=== PATIENT | female | born 1955 | race Caucasian/White ===

== ENCOUNTER 2017-07-01 09:53 | Emergency (ER) | payer OTHER ==
--- NOTE | 2017-07-01 10:40 | EDM.PDOC ---
[id number] Complaint: General Stated Complaint: LT RIB PAIN Time Seen by Provider: 07/01/17 10:38 Source of Information: Reports: Patient History Limitations: Reports: No Limitations - History of Present Illness INITIAL COMMENTS - FREE TEXT/NARRATIVE: Patient is a 61-year-old female presents ED complaining of left-sided rib pain. Patient states her this week she was opening up a window that was stuck. Patient had to strain to do this with a pop sensation fell to the left lower ribs. States throughout the course of the week she was babysitting it and taking ibuprofen and hydrocodone. Patient takes hydrocodone for chronic back pain. She states yesterday while carrying to heavy basic daily later the pain worsened. She has not been able to lay flat at night to sleep. States she has been sleeping intermittently in a recliner. Pain is quite severe with taking a deep breath, palpation, and of course lifting heavy items. She is not short of breath. She denies a cough, fever/chills, nausea/vomiting, or abdominal pain. She states it feels more like a bruise. She is concerned she may have fractured a rib. - Related Data Allergies Allergy/AdvReac Type Severity Reaction Status Date / Time erythromycin base Allergy Rash Verified 07/01/17 10:13 ees Allergy Rash Uncoded 07/01/17 10:13 Home Meds: Home Meds Ibuprofen 600 mg PO Q4H 09/29/14 [History] Valsartan [Diovan] 320 mg PO DAILY 09/29/14 [History] Celecoxib [CeleBREX] 200 mg PO BID 12/10/16 [History] DULoxetine [Cymbalta] 20 mg PO DAILY 12/10/16 [History] Fexofenadine [Ashley] 180 mg PO DAILY PRN 12/10/16 [History] buPROPion [Wellbutrin XL] 150 mg PO DAILY 12/10/16 [History] Hydrocodone/Acetaminophen [Hydrocodon-Acetaminophn 10-325] 0.5 tab PO Q6H PRN # 15 tablet 07/01/17 [Rx] Pantoprazole Sodium 40 mg PO DAILY 07/01/17 [History] ED ROS GENERAL - Review of Systems Review Of Systems: ROS reveals no pertinent complaints other than HPI. ED EXAM, GENERAL - Physical Exam Exam: See Below Exam Limited By: No Limitations General Appearance: Alert, WD/WN, No Apparent Distress Ears: Hearing Grossly Normal Nose: Normal Inspection Throat/Mouth: Normal Voice, No Airway Compromise Neck: Normal Inspection, Supple Respiratory/Chest: No Respiratory Distress, Lungs Clear, Normal Breath Sounds, No Accessory Muscle Use, Other (Tenderness along the mammary fold of the left breast mid clavicular. no swelling, bruising, redness, or bony abnormalities. Pain with palpation and taking deep breath. ) Cardiovascular: Normal Peripheral Pulses, Regular Rate, Rhythm, No Murmur Peripheral Pulses: 2+: Radial (L) GI/Abdominal: Normal Bowel Sounds, Soft, Non-Tender, No Organomegaly, No Distention Extremities: Normal Inspection Neurological: Alert, Oriented, CN II-XII Intact, Normal Cognition, No Motor/ Sensory Deficits Psychiatric: Normal Affect, Normal Mood Skin Exam: Warm, Dry, Intact, Normal Color Course - Vital Signs Last Recorded V/S: Last Vital Signs Temp 37.2 C 07/01/17 10:13 Pulse 75 07/01/17 12:00 Resp 16 07/01/17 12:00 BP 141/86 H 07/01/17 12:00 Pulse Ox 96 07/01/17 12:00 - Re-Assessments/Exams Free Text/Narrative Re-Assessment/Exam: X-ray of the chest and left rib series was obtained. 07/01/17 11:24 X-ray of the chest and left ribs did not reveal any acute abnormalities. Patient has a intercostal muscle strain. Discharged home with instructions as documented. Departure - Departure Time of Disposition: 11:25 Disposition: Home, Self-Care 01 Condition: Good Clinical Impression: Anterior chest wall pain - Discharge Information Prescriptions: Hydrocodone/Acetaminophen [Hydrocodon-Acetaminophn 10-325] 0.5 tab PO Q6H PRN # 15 tablet PRN Reason: Pain (Severe 7-10) Instructions: Chest Wall Pain Referrals: Myrtle Matthew [employer] G[employer]ILDER [Primary Care Provider] - Forms: ED Department Discharge Additional Instructions: X-ray of the chest did not reveal any acute bony abnormalities. Etiology current complaint muscle related and will take some time to heal. For pain take ibuprofen 600 mg every 6 hours and Tylenol 650 mg every 6 hours in alternating fashion. Utilize warm or cold compresses to affected area as needed. Refrain from any activities that cause worsening pain. Can also utilize over-the- counter topical pain ointment such as Biofreeze in addition to all the above therapies. Take the ibuprofen with food and water. Do not exceed the 600 mg every 6 hours. For severe pain take [place] half tab every 4-6 hours as needed. Can take a full tab at night to help with sleeping. Utilize [id number] stool softener while taking the [place]. No driving while taking the [place]. See her primary care provider in one week for reevaluation. Return to ED for any new or worsening symptoms. 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 Neurological History: Reports: None Psychiatric History: Reports: None Endocrine/Metabolic History: Reports: None Hematologic History: Reports: None Immunologic History: Reports: None Oncologic (Cancer) History: Reports: None Dermatologic History: Reports: Cellulitis - Infectious Disease History Infectious Disease History: Reports: None - Past Surgical History GI Surgical History: Reports: Appendectomy, Hernia, Abdominal, Hernia Repair/ Other Female Surgical History: Reports: Hysterectomy, Salpingo-Oophorectomy Musculoskeletal Surgical History: Reports: Arthroscopic Knee Social & Family History - Family History Family Medical History: Noncontributory : Reports: Renal Calculus - Tobacco Use Smoking Status *Q: Never Smoker Second Hand Smoke Exposure: No - Caffeine Use Caffeine Use: Reports: None - Alcohol Use Days Per Week of Alcohol Use: 0 - Recreational Drug Use Recreational Drug Use: No - Living Situation & Occupation Living situation: Reports: Occupation: Employed
[2017-07-01 11:39] VITALS: BP 141/86
--- NOTE | 2017-07-01 17:29 | CR ---
Chest and left ribs: Frontal view of the chest was obtained as well as 3 views of the left ribs. Comparison: No previous chest or rib imaging. Slight atelectasis is seen within the left mid lung. Lungs otherwise are clear. No pneumothorax is seen. Heart size is within normal limits. Mild tortuosity of the thoracic aorta is seen. No discrete rib fracture or other left-sided rib abnormality is seen. Impression: 1. Slight atelectasis. 2. No discrete left-sided rib abnormality is identified. Nondisplaced fracture could easily be missed. 3. Nothing acute is appreciated. Diagnostic code #2
== END 2017-07-01 12:01 | disposition home or self-care (01) ==
LOC: JD.ED 09:53
DX: S29.011A Strain of muscle and tendon of front wall of thorax, initial encounter (principal); I10 Essential (primary) hypertension; Z88.1 Allergy status to other antibiotic agents; Z79.899 Other long term (current) drug therapy; Z90.49 Acquired absence of other specified parts of digestive tract; Z90.710 Acquired absence of both cervix and uterus; X58.XXXA Exposure to other specified factors, initial encounter
CPT/HCPCS: 71101-26-LT; 71101-LT; 99283

== ENCOUNTER 2018-02-11 10:22 | Emergency (ER) | payer OTHER ==
[2018-02-11 10:33] VITALS: BP 188/107
--- NOTE | 2018-02-11 11:28 | EDM.PDOC ---
ED HPI GENERAL MEDICAL PROBLEM - General Chief Complaint: Back Pain or Injury Stated Complaint: LT WRIST /HEAD/BACK Time Seen by Provider: 02/11/18 11:10 Source of Information: Reports: Patient History Limitations: Reports: No Limitations - History of Present Illness INITIAL COMMENTS - FREE TEXT/NARRATIVE: Patient is a 62-year-old female presents ED complaining of left wrist pain, right sided low back pain, right and left-sided neck pain, and posterior head discomfort. Patient fell approximately 8:00 this morning while walking across a parking lot. Patient slipped on the snow. Fell on her right side hitting the back of her head. There was no loss of consciousness. Patient was able to get up on her own accord with no difficulties. Since then has decrease in discomfort to the back of her head but the pain to her right lateral aspect of her low back has persisted unchanged. In addition she'smild swelling to the left wrist/hand. She believes she may have hit her hand during the fall. Minimal change in range of motion noted. She is under chronic pain management for osteoarthritis. She is on their cuff, Cymbalta, and hydrocodone. She also has a mild headache. She is concerned she may have fractured bone or wrist. Otherwise she has a history of osteoarthritis and believes most discomfort is associated with that. She is on no blood thinners. She did ambulate into the ED on her own accord with no difficulties. She has a history of back surgery cystectomy to the lumbar spine approximately 9 weeks ago. She has no midline cervical, thoracic, or lumbar pain. No pain radiating down her legs. No saddle anesthesia or, C or stool. She has full range of motion of her neck. No numbness or team to extremities.. No vision changes. No focal neurological deficits. Mildly nauseated but no emesis. She has no other complaints. Treatments MANAGER LVN: Reports: Other (see below) Other Treatments MANAGER LVN: Ibuprofen, Prednisone Right Lower Back Pain Score (Numeric/FACES): 7 - Related Data Allergies Allergy/AdvReac Type Severity Reaction Status Date / Time erythromycin base Allergy Rash Verified 07/01/17 10:13 ees Allergy Rash Uncoded 07/01/17 10:13 Home Meds: Home Meds Ibuprofen 600 mg PO Q4H 09/29/14 [History] Valsartan [Diovan] 320 mg PO DAILY 09/29/14 [History] Celecoxib [CeleBREX] 200 mg PO BID 12/10/16 [History] DULoxetine [Cymbalta] 20 mg PO DAILY 12/10/16 [History] Fexofenadine [Ashley] 180 mg PO DAILY PRN 12/10/16 [History] Hydrocodone/Acetaminophen [Hydrocodon-Acetaminophn 10-325] 0.5 tab PO Q6H PRN # 15 tablet 07/01/17 [Rx] Pantoprazole Sodium 40 mg PO DAILY 07/01/17 [History] Pregabalin [Lyrica] 60 mg PO DAILY 02/11/18 [History] Past Medical History HEENT History: Reports: Allergic Rhinitis, Impaired Vision Other HEENT History: Wears glasses Cardiovascular History: Reports: Hypertension Respiratory History: Reports: None Gastrointestinal History: Reports: Other (See Below) Other Gastrointestinal History: Stomach ulcer Genitourinary History: Reports: Renal Calculus 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 Neurological History: Reports: None Psychiatric History: Reports: None Endocrine/Metabolic History: Reports: None Hematologic History: Reports: None Immunologic History: Reports: None Oncologic (Cancer) History: Reports: None Dermatologic History: Reports: Cellulitis - Infectious Disease History Infectious Disease History: Reports: None - Past Surgical History GI Surgical History: Reports: Appendectomy, Hernia, Abdominal, Hernia Repair/ Other Female Surgical History: Reports: Hysterectomy, Salpingo-Oophorectomy Musculoskeletal Surgical History: Reports: Arthroscopic Knee Social & Family History - Family History Family Medical History: Noncontributory : Reports: Renal Calculus - Tobacco Use Smoking Status *Q: Never Smoker Second Hand Smoke Exposure: No - Caffeine Use Caffeine Use: Reports: None - Alcohol Use Days Per Week of Alcohol Use: 0 - Recreational Drug Use Recreational Drug Use: No - Living Situation & Occupation Living situation: Reports: Occupation: Employed ED ROS GENERAL - Review of Systems Review Of Systems: ROS reveals no pertinent complaints other than HPI. ED EXAM, GENERAL - Physical Exam Exam: See Below Exam Limited By: No Limitations General Appearance: Alert, WD/WN, No Apparent Distress Eye Exam: Bilateral Eye: EOMI, PERRL Ears: Hearing Grossly Normal Nose: Normal Inspection Throat/Mouth: Normal Inspection, Normal Oropharynx, Normal Voice, No Airway Compromise Head: Other (Small hematoma to the posterior aspect of her head. With no bony abnormalities noted. No wounds present.) Neck: Normal Inspection, Supple, Non-Tender (Midline), Full Range of Motion, Tender Lateral (Bilaterally) Respiratory/Chest: No Respiratory Distress, Lungs Clear, Normal Breath Sounds, No Accessory Muscle Use, Chest Non-Tender Cardiovascular: Normal Peripheral Pulses, Regular Rate, Rhythm Peripheral Pulses: 4+: Radial (L) GI/Abdominal: Normal Bowel Sounds, Soft, Non-Tender, No Organomegaly, No Distention Back Exam: Normal Inspection, Other (Minimal discomfort noted along the right lateral low back. No bruising or bruising noted.). No: Paraspinal Tenderness, Vertebral Tenderness Extremities: Other (Mild swelling noted to the base of the left thumb. Pain along the scaphoid process. Minimal change in range of motion noted of the wrist. No complaints with palpation of the fingers, many parts of the hand, forearm, elbow, upper arm, shoulder, clavicle.) Neurological: Alert, Oriented, CN II-XII Intact, Normal Cognition, Normal Gait, No Motor/Sensory Deficits Psychiatric: Normal Affect, Normal Mood Skin Exam: Warm, Dry, Intact, Normal Color, No Rash Course - Vital Signs Last Recorded V/S: Last Vital Signs Temp 97.2 F 02/11/18 10:29 Pulse 73 02/11/18 10:29 Resp 18 02/11/18 10:29 BP 188/107 H 02/11/18 10:29 Pulse Ox 99 02/11/18 10:29 - Re-Assessments/Exams Free Text/Narrative Re-Assessment/Exam: Will order x-ray of the left wrist. No other studies required at this time. X-ray of the left wrist final interpretation: no acute bony abnormalities noted. Thumb Spica splint applied since patient has pain along the scaphoid process. Applied with no complications. Discharge instructions as documented. Departure - Departure Time of Disposition: 12:15 Disposition: Home, Self-Care 01 Condition: Good Clinical Impression: Left wrist sprain Qualifiers: Encounter type: initial encounter Qualified Code(s): S63.502A - Unspecified sprain of left wrist, initial encounter Contusion of wrist, left Qualifiers: Encounter type: initial encounter Qualified Code(s): S60.212A - Contusion of left wrist, initial encounter - Discharge Information Instructions: Wrist Sprain, Adult Referrals: Myrtle Matthew P[employer] UP MAN [Primary Care Provider] - Forms: ED Department Discharge Additional Instructions: X-ray of the left wrist did not reveal any acute bony abnormalities. Due to pain along the anatomical snuffbox concerning for potential scaphoid fracture thus requiring application of thumb spica splint. X-ray of the left wrist she be undertaken in 10 days. Follow-up with Dr. Hernandez Orthopedic Surgeon for revaluation and placement of fiberglass cast if required. Leave splint in place. Elevate when able to reduce any swelling and pain. Continue taking all your home medications as prescribed. Apply ice to affected area 4 times a day, 30 minutes in duration, do not apply ice directly on the skin. Return to the ED if you develop any new or worsening symptoms.
--- NOTE | 2018-02-11 12:12 | CR ---
Left wrist: Four views of the left wrist were obtained. Comparison: No previous study. Joint space narrowing is noted within the CMC joint of the thumb. Other joint spaces are preserved. No acute fracture or other abnormality is seen. Impression: 1. Degenerative change within the CMC joint of the thumb. 2. Left wrist exam is otherwise unremarkable. Diagnostic code #2
== END 2018-02-11 12:23 | disposition home or self-care (01) ==
LOC: JD.ED 10:22
DX: S63.502A Unspecified sprain of left wrist, initial encounter (principal); S60.212A Contusion of left wrist, initial encounter; I10 Essential (primary) hypertension; Z88.1 Allergy status to other antibiotic agents; Z91.030 Bee allergy status; Z79.899 Other long term (current) drug therapy; W01.10XA Fall on same level from slipping, tripping and stumbling with subsequent striking against unspecified object, initial encounter
CPT/HCPCS: 29125; 73110-26-LT; 73110-LT; 99283; 99283-25

== ENCOUNTER 2018-06-04 11:40 | Emergency (ER) | payer OTHER ==
[2018-06-04 11:57] VITALS: BP 198/116
[2018-06-04] MEDS ORDERED: Cyclobenzaprine 10 MG Tab PO ONE (12:43)
--- NOTE | 2018-06-04 12:51 | EDM.PDOC ---
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 She felt a pop in her mid chest/ sternum and had instant pain across her chest and "through my whole body" which lasted a minute or so. She continued to have pain to her mid chest with any movements since that time. 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 She then went to her other job at the [employer] store last evening. She was not able to sleep much last night due to the pain in her chest, unable to lay flat due to increasing pain. This morning pain is also present and worse than yesterday, she is unable to work today due to the pain. Pain is now present and worsens with deep breaths today. She took ibuprofen with minimal improvements. Denies palpitations, headache, nausea, neck or arm pain. Onset: Sudden Duration: Day(s): (1) Location: Reports: Chest Quality: Reports: Ache, Sharp (wtih movements), Throbbing Improves with: Reports: Rest Worsens with: Reports: Movement Context: Reports: Lifting Associated Symptoms: Reports: Chest Pain. 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 Middle Chest Pain Score (Numeric/FACES): 10 - Related Data Allergies Allergy/AdvReac Type Severity Reaction Status Date / Time erythromycin base Allergy Rash Verified 07/01/17 10:13 donavan Allergy Sneezing Verified 06/04/18 12:00 ees Allergy Rash Uncoded 07/01/17 10:13 Home Meds: Home Meds Ibuprofen 600 mg PO Q6H 09/29/14 [History] Valsartan [Diovan] 320 mg PO DAILY 09/29/14 [History] Celecoxib [CeleBREX] 200 mg PO BID 12/10/16 [History] DULoxetine [Cymbalta] 90 mg PO DAILY 12/10/16 [History] Fexofenadine [Ashley] 180 mg PO DAILY PRN 12/10/16 [History] Pantoprazole Sodium 40 mg PO DAILY 07/01/17 [History] Hydrocodone/Acetaminophen [Hydrocodon-Acetaminophn 10-325] 1 tab PO Q4H PRN 09/12 [History] Past Medical History HEENT History: Reports: Allergic Rhinitis, Impaired Vision Other HEENT History: Wears glasses Cardiovascular History: Reports: Hypertension Respiratory History: Reports: None Gastrointestinal History: Reports: Other (See Below) Other Gastrointestinal History: Stomach ulcer Genitourinary History: Reports: Renal Calculus 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 Neurological History: Reports: None Psychiatric History: Reports: None Endocrine/Metabolic History: Reports: None Hematologic History: Reports: None Immunologic History: Reports: None Oncologic (Cancer) History: Reports: None Dermatologic History: Reports: Cellulitis - Infectious Disease History Infectious Disease History: Reports: None - Past Surgical History GI Surgical History: Reports: Appendectomy, Hernia, Abdominal, Hernia Repair/ Other Female Surgical History: Reports: Hysterectomy, Salpingo-Oophorectomy Musculoskeletal Surgical History: Reports: Arthroscopic Knee Social & Family History - Family History Family Medical History: Noncontributory : Reports: Renal Calculus - Caffeine Use Caffeine Use: Reports: None - Living Situation & Occupation Living situation: Reports: Occupation: Employed ED ROS GENERAL - Review of Systems Review Of Systems: See Below Constitutional: Reports: No Symptoms HEENT: Reports: No Symptoms Respiratory: Reports: No Symptoms. Denies: Shortness of Breath, Cough Cardiovascular: Denies: Dyspnea on Exertion, Palpitations, Syncope GI/Abdominal: Reports: No Symptoms : Reports: No Symptoms Musculoskeletal: Reports: Other (pain to mid chest with any amount of movement, deep breaths, coughing, sneezing) Skin: Reports: No Symptoms Neurological: Reports: No Symptoms ED EXAM, GENERAL - Physical Exam Exam: See Below Exam Limited By: No Limitations General Appearance: Alert, WD/WN, No Apparent Distress Eye Exam: Bilateral Eye: EOMI, PERRL Ears: Normal External Exam, Hearing Grossly Normal Nose: Normal Inspection Throat/Mouth: Normal Inspection, Normal Teeth, Normal Voice, No Airway Compromise Head: Atraumatic, Normocephalic Neck: Normal Inspection Respiratory/Chest: No Respiratory Distress, Lungs Clear, Normal Breath Sounds, Other (palpation of anterior chest wall reveals ) Cardiovascular: Regular Rate, Rhythm, No Edema, Other (trace edema to ankles, worse to left- has hx of lt ankle fx and has swelling intermittent) Peripheral Pulses: 2+: Dorsalis Pedis (L), Dorsalis Pedis (R) GI/Abdominal: Normal Bowel Sounds, Soft, Non-Tender (Female) Exam: Deferred Rectal (Female) Exam: Deferred Back Exam: Normal Inspection Extremities: Normal Inspection, Non-Tender Neurological: Alert, Oriented, CN II-XII Intact Psychiatric: Normal Affect, Normal Mood Skin Exam: Warm, Dry, Intact Course - Vital Signs Last Recorded V/S: Last Vital Signs Temp 99.5 F 06/04/18 11:54 Pulse 85 06/04/18 11:54 Resp 24 H 06/04/18 11:54 BP 198/116 H 06/04/18 11:54 Pulse Ox 97 06/04/18 11:54 - Orders/Labs/Meds Orders: Active Orders 24 hr Category Date Time Status Chest 2V [CR] Stat Exams 06/04/18 12:43 Taken Meds: Medications Discontinued Medications Generic Name Dose Route Start Last Admin Trade Name Dylan PRN Reason Stop Dose Admin Cyclobenzaprine HCl 10 mg 06/04/18 12:43 06/04/18 12:49 Flexeril PO 06/04/18 12:44 10 mg ONETIME ONE Administration Departure - Departure Time of Disposition: 14:05 Disposition: Home, Self-Care 01 Condition: Good Clinical Impression: Costochondritis, acute - Discharge Information *PRESCRIPTION DRUG MONITORING PROGRAM REVIEWED*: No *COPY OF PRESCRIPTION DRUG MONITORING REPORT IN PATIENT KANWAL: No Instructions: Costochondritis, [id number], Nonspecific Chest Pain, Easy-to- Read Referrals: PCP,None [Ordering Only Provider] - Forms: ED Department Discharge Additional Instructions: Your chest xray is normal today. Recommend no lifting, pushing, pulling, carrying anything >10lbs for the next week, minimal repeatitive activities with upper extremities for the next 1-2 weeks, minimal overhead activities/work for the next 1-2 weeks. Ibuprofen 600-800mg 3 times daily with food. Flexeril - muscle relaxant can be taken 3 times daily for spasms/pain. Can use your hydrocodone prescription as needed and directed by your primary care provider. Please follow up with PCP, IVET Alarcon in the next few days. Follow up for your elevated b/p; check b/p once daily and record. - My Orders Last 24 Hours: My Active Orders 06/04/18 12:43 Chest 2V [CR] Stat - Assessment/Plan Last 24 Hours: My Active Orders 06/04/18 12:43 Chest 2V [CR] Stat
--- NOTE | 2018-06-05 09:26 | CR ---
Chest: Two views of the chest were obtained. Comparison: Prior chest x-ray of 07/01/17. Heart size is normal. Tortuous thoracic aorta is seen. Lungs are clear with no acute parenchymal change. Bony structures are unremarkable. Impression: 1. Nothing acute is seen on two-view chest x-ray. Diagnostic code #2
== END 2018-06-04 14:35 | disposition home or self-care (01) ==
LOC: JD.ED 11:40
DX: M94.0 Chondrocostal junction syndrome [Tietze] (principal); I10 Essential (primary) hypertension; Z88.1 Allergy status to other antibiotic agents; Z79.899 Other long term (current) drug therapy
CPT/HCPCS: 71046; 99284; A9270

== ENCOUNTER 2018-08-31 18:15 | Emergency (ER) | payer MEDICARE, OTHER ==
--- NOTE | 2018-08-31 19:13 | EDM.PDOC ---
ED HPI GENERAL MEDICAL PROBLEM - General Chief Complaint: General Stated Complaint: HBP AND DIZZY Time Seen by Provider: 08/31/18 19:13 - History of Present Illness INITIAL COMMENTS - FREE TEXT/NARRATIVE: 63-year-old female presents emergency room to have a blood pressure check. She generally does not feel well she had the Pneumovax and flu shot yesterday yesterday she noticed her blood pressure as high as 180. Today the emergency room her blood pressure is well within the normal range she still feels a little achy apparently the patient has residual kidney stones within the kidneys have not caused her active problems recently but she is scheduled to see urology for more definitive plan for this. Recently she had her blood pressure medication changed she is currently taking losartan and lisinopril and wonders if this could be making her feel bad. Discussed potential interactions with these 2 medications the need for very close lab monitoring and this is probably best done under specialty supervision Headache Pain Score (Numeric/FACES): 6 - Related Data Allergies Allergy/AdvReac Type Severity Reaction Status Date / Time erythromycin base Allergy Rash Verified 08/31/18 18:31 donavan Allergy Sneezing Verified 08/31/18 18:31 ees Allergy Rash Uncoded 08/31/18 18:31 Home Meds: Home Meds Ibuprofen 600 mg PO Q6H 09/29/14 [History] Valsartan [Diovan] 320 mg PO DAILY 09/29/14 [History] Celecoxib [CeleBREX] 200 mg PO BID 12/10/16 [History] DULoxetine [Cymbalta] 90 mg PO DAILY 12/10/16 [History] Fexofenadine [Ashley] 180 mg PO DAILY PRN 12/10/16 [History] Pantoprazole Sodium 40 mg PO DAILY 07/01/17 [History] Hydrocodone/Acetaminophen [Hydrocodon-Acetaminophn 10-325] 1 tab PO Q4H PRN 09/12 [History] Capsaicin [Arthritis Pain Relief] 1 applic TOP QID 08/31/18 [History] Clobetasol [Temovate 0.05% Oint] 1 applic TOP DAILY 08/31/18 [History] Diclofenac Sodium [Pennsaid] 1 applic TOP QID 08/31/18 [History] Fluticasone Furoate [Arnuity Ellipta] 1 inh INH ASDIRECTED 08/31/18 [History] Lisinopril [Prinivil] 20 mg PO DAILY 08/31/18 [History] Pregabalin [Lyrica] 50 mg PO TID 08/31/18 [History] Tamsulosin [Flomax] 0.4 mg PO DAILY 08/31/18 [History] Past Medical History HEENT History: Reports: Allergic Rhinitis, Impaired Vision Other HEENT History: Wears glasses Cardiovascular History: Reports: Hypertension Respiratory History: Reports: None Gastrointestinal History: Reports: Other (See Below) Other Gastrointestinal History: Stomach ulcer Genitourinary History: Reports: Renal Calculus BAKER TEST History: Reports: Other BAKER TEST History: 5 para 3 Musculoskeletal History: Reports: Fracture, Osteoporosis, Other (See Below) Other Musculoskeletal History: Herniated disc in back, torn tendons in foot. Neurological History: Reports: None Psychiatric History: Reports: None Endocrine/Metabolic History: Reports: None Hematologic History: Reports: None Immunologic History: Reports: None Oncologic (Cancer) History: Reports: None Dermatologic History: Reports: Cellulitis - Infectious Disease History Infectious Disease History: Reports: None - Past Surgical History GI Surgical History: Reports: Appendectomy, Hernia, Abdominal, Hernia Repair/ Other Female Surgical History: Reports: Hysterectomy, Salpingo-Oophorectomy Musculoskeletal Surgical History: Reports: Arthroscopic Knee Social & Family History - Family History Family Medical History: Noncontributory : Reports: Renal Calculus - Tobacco Use Smoking Status *Q: Never Smoker - Caffeine Use Caffeine Use: Reports: Energy Drinks Other Caffeine Use: rarely - Recreational Drug Use Recreational Drug Use: No - Living Situation & Occupation Living situation: Reports: Occupation: Employed [employer] [facility] - Review of Systems Review Of Systems: See Below Constitutional: Reports: No Symptoms. Denies: Fever, Chills HEENT: Denies: No Symptoms Respiratory: Denies: No Symptoms, Shortness of Breath Cardiovascular: Denies: No Symptoms Endocrine: Denies: No Symptoms GI/Abdominal: Reports: No Symptoms. Denies: Abdominal Pain, Anorexia, Diarrhea , Decreased Appetite, Nausea, Vomiting : Reports: Other (She has some occasional discomfort that she start is related to her kidney stones) Musculoskeletal: Denies: Shoulder Pain Skin: Denies: Dryness, Bruising, Pruritis Neurological: Denies: No Symptoms, Confusion, Dizziness Psychiatric: Reports: No Symptoms Hematologic/Lymphatic: Reports: No Symptoms ED EXAM, GENERAL - Physical Exam Exam: See Below Exam Limited By: No Limitations General Appearance: Alert, No Apparent Distress Eye Exam: Bilateral Eye: Normal Inspection Head: Atraumatic, Normocephalic Neck: Normal Inspection, Supple, Non-Tender, Full Range of Motion Respiratory/Chest: No Respiratory Distress, Lungs Clear, Normal Breath Sounds, No Accessory Muscle Use, Chest Non-Tender Cardiovascular: Normal Peripheral Pulses, Regular Rate, Rhythm, No Edema, No Gallop, No JVD, No Murmur, No Rub Course - Vital Signs Last Recorded V/S: Last Vital Signs Temp 36.1 C 08/31/18 18:23 Pulse 72 08/31/18 18:23 Resp 18 08/31/18 18:23 BP 122/64 08/31/18 18:23 Pulse Ox 99 08/31/18 18:23 - Re-Assessments/Exams Free Text/Narrative Re-Assessment/Exam: 08/31/18 19:29 Patient appears to have multiple medical conditions than really needed dressing right now her blood pressure stable discussed the combination of losartan and lisinopril very close monitoring this requires and have suggested expert supervision with this. The patient is really her blood pressure is okay this evening and she will be discharged home Departure - Departure Time of Disposition: 19:30 Disposition: Home, Self-Care 01 Clinical Impression: Hypertension, Blood pressure check - Discharge Information Referrals: Damari Eisenberg MD [Primary Care Provider] - Forms: ED Department Discharge Additional Instructions: Return to the emergency room with any questions problems worsening symptoms. Follow-up with your regular provider the middle this next week.
[2018-08-31 20:23] VITALS: BP 120/65
== END 2018-08-31 20:00 | disposition home or self-care (01) ==
LOC: JD.ED 18:15
DX: I10 Essential (primary) hypertension (principal); Z88.1 Allergy status to other antibiotic agents; Z79.899 Other long term (current) drug therapy
CPT/HCPCS: 99283; 99284

== ENCOUNTER 2019-02-12 12:10 | Emergency (ER) | payer MEDICARE, OTHER ==
[2019-02-12 12:18] VITALS: BP 189/85
--- NOTE | 2019-02-12 13:49 | EDM.PDOC ---
ED HPI GENERAL MEDICAL PROBLEM - General Chief Complaint: Fever Stated Complaint: FAST HEART RATE/FEVER Time Seen by Provider: 02/12/19 12:27 Source of Information: Reports: Patient History Limitations: Reports: No Limitations - History of Present Illness INITIAL COMMENTS - FREE TEXT/NARRATIVE: The patient presents from [facility] for palpitations and low grade temp. She as a ganglion cyst on her right foot. She was supposed to get surgery yesterday but she had a low grade temp of 100.7. They rescheduled for today and her temp was up again. She has some ear pressure to her left ear. She has a mild headache to the left side of her head. She has no cough, congestion, runny nose, chest pain, shortness of breath, chest pain, abdominal pain, nausea or vomiting. She has no dysuria or hematuria. She has no source for any infection. She also told the clinic at times that she will feel her heart pounding. They sent her over here for further evaluation. Onset: Gradual Duration: Day(s): Location: Reports: Head Quality: Reports: Ache Severity: Mild Improves with: Reports: None Worsens with: Reports: None Associated Symptoms: Reports: Headaches. Denies: Chest Pain, Cough, Fever/ Chills, Nausea/Vomiting, Shortness of Breath Right Feet Pain Score (Numeric/FACES): 10 - Related Data Allergies Allergy/AdvReac Type Severity Reaction Status Date / Time erythromycin base Allergy Rash Verified 08/31/18 18:31 donavan Allergy Sneezing Verified 08/31/18 18:31 ees Allergy Rash Uncoded 08/31/18 18:31 Home Meds: Home Meds Ibuprofen 600 mg PO Q6H 09/29/14 [History] Valsartan [Diovan] 320 mg PO DAILY 09/29/14 [History] Celecoxib [CeleBREX] 200 mg PO BID 12/10/16 [History] DULoxetine [Cymbalta] 90 mg PO DAILY 12/10/16 [History] Fexofenadine [Ashley] 180 mg PO DAILY PRN 12/10/16 [History] Pantoprazole Sodium 40 mg PO DAILY 07/01/17 [History] Hydrocodone/Acetaminophen [Hydrocodon-Acetaminophn 10-325] 1 tab PO Q4H PRN 09/12 [History] Capsaicin [Arthritis Pain Relief] 1 applic TOP QID 08/31/18 [History] Clobetasol [Temovate 0.05% Oint] 1 applic TOP DAILY 08/31/18 [History] Diclofenac Sodium [Pennsaid] 1 applic TOP QID 08/31/18 [History] Fluticasone Furoate [Arnuity Ellipta] 1 inh INH ASDIRECTED 08/31/18 [History] Lisinopril [Prinivil] 20 mg PO DAILY 08/31/18 [History] Pregabalin [Lyrica] 50 mg PO TID 08/31/18 [History] Hydrocodone/Acetaminophen [Hydrocodon-Acetaminophen 5-325] 1 each PO Q6HR PRN # 2 tablet 10/20/18 [Rx] Past Medical History HEENT History: Reports: Allergic Rhinitis, Impaired Vision Other HEENT History: Wears glasses Cardiovascular History: Reports: Hypertension Respiratory History: Reports: None Gastrointestinal History: Reports: Other (See Below) Other Gastrointestinal History: Stomach ulcer Genitourinary History: Reports: Renal Calculus FURNACE BUILDER History: Reports: Other FURNACE BUILDER History: 5 para 3 Musculoskeletal History: Reports: Arthritis, Fracture, Osteoporosis, Other (See Below) Other Musculoskeletal History: Herniated disc in back, torn tendons in foot. ganglion cyst to the right foot Neurological History: Reports: None Psychiatric History: Reports: None, Anxiety, Depression Endocrine/Metabolic History: Reports: None Hematologic History: Reports: None Immunologic History: Reports: None Oncologic (Cancer) History: Reports: None Dermatologic History: Reports: Cellulitis - Infectious Disease History Infectious Disease History: Reports: None - Past Surgical History GI Surgical History: Reports: Appendectomy, Hernia, Abdominal, Hernia Repair/ Other Female Surgical History: Reports: Hysterectomy, Salpingo-Oophorectomy Musculoskeletal Surgical History: Reports: Arthroscopic Knee Social & Family History - Family History Family Medical History: Noncontributory : Reports: Renal Calculus - Tobacco Use Smoking Status *Q: Never Smoker - Caffeine Use Caffeine Use: Reports: Coffee Other Caffeine Use: rarely - Recreational Drug Use Recreational Drug Use: No - Living Situation & Occupation Living situation: Reports: Occupation: Employed [employer] - Review of Systems Review Of Systems: See Below Constitutional: Reports: Fever HEENT: Reports: No Symptoms Respiratory: Reports: No Symptoms Cardiovascular: Reports: Palpitations. Denies: Chest Pain Endocrine: Reports: No Symptoms GI/Abdominal: Reports: No Symptoms : Reports: No Symptoms Musculoskeletal: Reports: No Symptoms ED EXAM, SEPSIS - Physical Exam Exam: See Below Exam Limited By: No Limitations General Appearance: Alert, No Apparent Distress Ears: Normal External Exam, Normal Canal, Normal TMs Nose: Normal Inspection Throat/Mouth: Normal Inspection Head: Atraumatic, Normocephalic Neck: Normal Inspection, Supple, Non-Tender Respiratory/Chest: No Respiratory Distress, Lungs Clear, Normal Breath Sounds Cardiovascular: Regular Rate, Rhythm, No Edema, No Murmur GI/Abdominal Exam: Soft, Non-Tender, No Organomegaly, No Mass Back: Normal Inspection Extremities: Normal Inspection EKG INTERPRETATION EKG Date: 02/12/19 Time: 12:49 Rhythm: NSR Rate (Beats/Min): 68 [place]: Normal P-Wave: Present QRS: Normal ST-T: Normal QT: Normal Course - Vital Signs Last Recorded V/S: Last Vital Signs Temp 98.8 F 02/12/19 12:17 Pulse 74 02/12/19 12:17 Resp 20 02/12/19 12:17 BP 189/85 H 02/12/19 12:17 Pulse Ox 96 02/12/19 12:17 - Orders/Labs/Meds Orders: Active Orders 24 hr Category Date Time Status EKG Documentation Completion [RC] ASDIRECTED Care 02/12/19 12:48 Active EKG 12 Lead [EK] Stat Ther 02/12/19 12:47 Ordered - Re-Assessments/Exams Free Text/Narrative Re-Assessment/Exam: 02/12/19 13:49 I ordered an EKG and that looks good. I feel she may have a viral syndrome. She is anxious about this foot surgery and wants to get it done. I do not feel it is worth doing labs or an x-ray. I will discharge her home. Departure - Departure Time of Disposition: 13:50 Disposition: Home, Self-Care 01 Condition: Good Clinical Impression: Viral syndrome, Palpitations - Discharge Information *PRESCRIPTION DRUG MONITORING PROGRAM REVIEWED*: Not Applicable *COPY OF PRESCRIPTION DRUG MONITORING REPORT IN PATIENT KANWAL: Not Applicable Referrals: Estelle Smith PA-C [Primary Care Provider] - 1 Week Additional Instructions: Take your medication as prescribed. Please return if you are worse. - My Orders Last 24 Hours: My Active Orders 02/12/19 12:47 EKG 12 Lead [EK] Stat 02/12/19 12:48 EKG Documentation Completion [RC] ASDIRECTED - Assessment/Plan Last 24 Hours: My Active Orders 02/12/19 12:47 EKG 12 Lead [EK] Stat 02/12/19 12:48 EKG Documentation Completion [RC] ASDIRECTED
== END 2019-02-12 14:00 | disposition home or self-care (01) ==
LOC: JD.ED 12:10
DX: R00.2 Palpitations (principal); B34.9 Viral infection, unspecified; I10 Essential (primary) hypertension; F41.9 Anxiety disorder, unspecified; F32.9 Major depressive disorder, single episode, unspecified; Z88.1 Allergy status to other antibiotic agents; Z79.899 Other long term (current) drug therapy
CPT/HCPCS: 93005; 93010; 99283; 99284-25